=== PATIENT | male | born 1975 ===

== ENCOUNTER → 2019-09-26 | Outpatient (CLI) | payer OTHER ==
--- NOTE | 2019-09-26 17:26 | KCIC ---
CT study of the right shoulder without contrast Clinical indications: Chronic right shoulder pain. 2 previous surgeries. [facility] preoperative planning protocol. TECHNIQUE: Noncontrast helical CT scanning of the right shoulder was performed. PQRS compliance Statement One or more of the following individualized dose reduction techniques were utilized for this study: 1. Automated exposure control 2. Adjustment of the mA and/or kV according to patient size 3. Use of iterative reconstruction technique COMPARISON: None available. FINDINGS: There is moderate spurring and mild joint space narrowing of the glenohumeral joint. Prominent subchondral degenerative cysts of the inferior aspect of the glenoid are seen. Less prominent degenerative cyst of the of the inferior medial aspect of the humeral head is seen. There is mild posterior subluxation of the humeral head with respect to the glenoid fossa. There is a surgical defect of the superior anterior portion of the humeral head. This may be due to a previous rotator cuff repair. No AC joint separation is evident. Minimal degenerative spurring of the AC joint is seen. 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 No radiopaque loose body is evident. No acute fracture is evident. No lytic process is evident. No soft tissue mass or abscess is evident. IMPRESSION: Moderate primary degenerative osteoarthritis of the glenohumeral joint. Mild posterior subluxation of the humeral head with respect to the glenoid fossa. This could be due to glenohumeral joint ligament laxity and/or tear of the posterior glenoid labrum. 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 Electronically signed by: Luis Miguel Page MD (09/26/2019 5:23 PM) [id number]
== END | disposition home or self-care (01) ==
LOC: KCIC CT 13:15
PROVIDERS: ATTEND Orthopaedic Surgery
DX: M19.011 Primary osteoarthritis, right shoulder (principal); G89.29 Other chronic pain
CPT/HCPCS: 73200